=== PATIENT | female | born 1950 | race Caucasian/White ===

== ENCOUNTER 2021-11-25 16:17 | Outpatient (CLI) | payer MEDICARE | END 2021-11-25 16:18 | disposition home or self-care (01) | LOC: SCSRAD 16:17 | PROVIDERS: ATTEND Student in an Organized Health Care Education/Training Program | DX: M79.632 Pain in left forearm (principal) ==

== ENCOUNTER 2023-11-10 14:14 | Outpatient (CLI) | payer MEDICARE | END 2023-11-10 14:15 | disposition home or self-care (01) | LOC: BICMAMMO 14:14 | PROVIDERS: ATTEND Family Medicine | DX: N63.15 Unspecified lump in the right breast, overlapping quadrants (principal); N64.89 Other specified disorders of breast | CPT/HCPCS: 76642; 77065; G0279 ==

== ENCOUNTER 2024-11-02 13:44 | Outpatient (CLI) | payer MEDICARE | END 2024-11-02 13:45 | disposition home or self-care (01) | LOC: SCSRAD 13:44 | PROVIDERS: ATTEND Nurse Practitioner Family | DX: M54.2 Cervicalgia (principal); R42 Dizziness and giddiness; M47.812 Spondylosis without myelopathy or radiculopathy, cervical region; M50.322 Other cervical disc degeneration at C5-C6 level; M50.323 Other cervical disc degeneration at C6-C7 level; M47.813 Spondylosis without myelopathy or radiculopathy, cervicothoracic region; Z71.89 Other specified counseling | CPT/HCPCS: 36415; 72050; 80053; 81001; 82306; 83036; 84443; 85025 ==